=== PATIENT | female | born 1995 | race Caucasian/White ===

== ENCOUNTER 2017-01-10 19:42 | Emergency (ER) | payer OTHER ==
[~2017-01-10] VITALS: Ht 162.6 cm; Wt 59.1 kg
[2017-01-10 19:51] VITALS: BP 136/93; TEMP 98.8
[2017-01-10] MEDS ORDERED: CRUTCHES MC (21:03)
[2017-01-10 21:16] VITALS: PULSE 79
== END 2017-01-10 21:16 | disposition home or self-care (01) ==
LOC: COL.ER 19:42
DX: M23.92 Unspecified internal derangement of left knee (principal); Z87.39 Personal history of other diseases of the musculoskeletal system and connective tissue; Z98.890 Other specified postprocedural states; X50.3XXA Overexertion from repetitive movements, initial encounter; Y93.02 Activity, running; Y92.410 Unspecified street and highway as the place of occurrence of the external cause
CPT/HCPCS: L1830